=== PATIENT | male | born 1970 | race Caucasian/White ===

== ENCOUNTER → 2022-02-24 | Outpatient (CLI) | payer BC ==
[~2022-02-24] MED LIST: 24 HOUR NASAL16.9 ML; ACYCLOVIR400 MG PO; ANTIVERT 25MG T25 MG PO; ASPIRIN CHEWABL81 MG PO; AUGMENTIN 875-1 EACH PO; LIDOCAINE PAIN1 EACH TP; NORCO 5-325 TA1 EACH PO
[2022-02-24 15:07] LABS: HEMOGLOBIN 13.6 gm/dl (14.0-17.5); RED BLOOD COUNT 4.43 M/UL (4.20-5.50)
[2022-02-24 15:40] LABS: BUN/CREATININE RATIO 17 (0-10)
[2022-02-26 11:14] LABS: ANTISTREPTOLYSIN O AB 156.1 IU/mL (0.0-200.0); RHEUMATOID ARTHRITIS FACTOR 11.1 IU/mL (<14.0)
== END ==
LOC: LAB 14:27
PROVIDERS: Nurse Practitioner Family
DX: Z13.220 Encounter for screening for lipoid disorders (principal); Z12.5 Encounter for screening for malignant neoplasm of prostate; Z00.00 Encounter for general adult medical examination without abnormal findings; K21.9 Gastro-esophageal reflux disease without esophagitis; M25.50 Pain in unspecified joint; F41.9 Anxiety disorder, unspecified; F32.A Depression, unspecified; F43.10 Post-traumatic stress disorder, unspecified; R53.83 Other fatigue; E55.9 Vitamin D deficiency, unspecified; F10.10 Alcohol abuse, uncomplicated; R25.2 Cramp and spasm
CPT/HCPCS: 36415; 80053; 80061; 81001; 82607; 83735; 84153; 84425; 84439; 84443; 84550; 84630; 85025; 86038; 86060; 86141; 86431; 87086